=== PATIENT | female | born 1985 | race Caucasian/White ===

== ENCOUNTER 2016-04-24 11:35 | Emergency (ER) | payer SELFPAY ==
--- NOTE | 2016-04-24 16:29 | Emergency Department Report ---
- General Chief Complaint: Upper Respiratory Infection Stated Complaint: COUGH/FEVER/CHILLS/HEADACHE Time Seen by Provider: 04/24/16 15:54 Source: patient Mode of arrival: Ambulatory Limitations: No Limitations - History of Present Illness Initial Comments: Patient presents with chills, cough bodyaches 2 days. She has been using over- the-counter medication with no relief. Denies vomiting, diarrhea. MD Complaint: cough Severity: moderate Severity scale (0 -10): 6 Quality: dull, aching Consistency: constant Improves With: nothing Worsens With: nothing Context: sick contacts Associated Symptoms: fever, myalgias, rhinorrhea, nasal congestion, cough Treatments Prior to Arrival: none - Related Data Previous Rx's Medication Instructions Recorded Last Taken Type Amoxicillin [Amoxicillin TAB] 875 mg PO BID #20 tablet 04/24/16 Unknown Rx Allergies Allergy/AdvReac Type Severity Reaction Status Date / Time No Known Allergies Allergy Verified 04/24/16 12:19 ED Review of Systems ROS: Stated complaint: COUGH/FEVER/CHILLS/HEADACHE Other details as noted in HPI Constitutional: denies: chills, fever ENT: denies: ear pain, throat pain Respiratory: cough. denies: shortness of breath, wheezing Cardiovascular: denies: chest pain, palpitations Gastrointestinal: denies: abdominal pain, nausea, diarrhea Genitourinary: denies: urgency, dysuria, discharge Musculoskeletal: denies: back pain, joint swelling, arthralgia Skin: denies: rash, lesions Neurological: denies: headache, weakness, paresthesias ED Past Medical Hx - Past Medical History Previous Medical History?: No Additional medical history: denies - Surgical History Additional Surgical History: denies - Social History Smoking Status: Current Some Day Smoker Substance Use Type: None - Medications Home Medications: Home Medications Medication Instructions Recorded Confirmed Last Taken Type Amoxicillin [Amoxicillin TAB] 875 mg PO BID #20 tablet 04/24/16 Unknown Rx ED Physical Exam - General Limitations: No Limitations General appearance: alert, in no apparent distress - Head Head exam: Present: atraumatic, normocephalic - Eye Eye exam: Present: normal appearance - ENT ENT exam: Present: mucous membranes moist - Expanded ENT Exam Expanded TM/Canal exam: Erythema: Left TM, Loss of Landmarks: Left TM Mouth exam: Present: normal external inspection Teeth exam: Present: normal inspection Throat exam: Positive: normal inspection - Neck Neck exam: Present: normal inspection, full ROM. Absent: tenderness - Respiratory Respiratory exam: Present: normal lung sounds bilaterally. Absent: respiratory distress - Cardiovascular Cardiovascular Exam: Present: regular rate, normal rhythm. Absent: systolic murmur, diastolic murmur, rubs, gallop - GI/Abdominal GI/Abdominal exam: Present: soft, normal bowel sounds - Extremities Exam Extremities exam: Present: normal inspection, full ROM - Back Exam Back exam: Present: normal inspection, full ROM - Neurological Exam Neurological exam: Present: alert, oriented X3, CN II-XII intact, normal gait - Psychiatric Psychiatric exam: Present: normal affect, normal mood - Skin Skin exam: Present: warm, dry, intact, normal color. Absent: rash ED Course Vital Signs 04/24/16 12:15 Temperature 98.3 F Pulse Rate 96 H Respiratory 16 Rate Blood Pressure 122/91 O2 Sat by Pulse 97 Oximetry ED Medical Decision Making - Medical Decision Making Patient presents with cough, sore throat. Physical exam reveals the left ear otitis media. I will give amoxicillin twice a day 10 days. - Differential Diagnosis otitis media, upper respiratory infection Critical Care Time: No Critical care attestation.: If time is entered above; I have spent that time in minutes in the direct care of this critically ill patient, excluding procedure time. ED Disposition Clinical Impression: Otitis media, left Disposition: DISCHARGED TO HOME OR SELFCARE Is pt being admited?: No Does the pt Need Aspirin: No Condition: Stable Instructions: Otitis Media (ED) Additional Instructions: Rest, increase fluid intake Prescriptions: Amoxicillin [Amoxicillin TAB] 875 mg PO BID #20 tablet Time of Disposition: 16:32
[2016-04-24 16:50] VITALS: BP 110/73
== END 2016-04-24 16:49 | disposition home or self-care (01) ==
LOC: ED 11:35
DX: H66.92 Otitis media, unspecified, left ear (principal); M79.1 Myalgia; R05 Cough; F17.200 Nicotine dependence, unspecified, uncomplicated
CPT/HCPCS: 99282

== ENCOUNTER 2016-09-13 13:10 | Emergency (ER) | payer MEDICAID ==
[2016-09-13 13:24] VITALS: BP 130/88
--- NOTE | 2016-09-13 18:36 | Emergency Department Report ---
Entered by AMRITA THOMAS, acting as scribe for JAYJAY SELLERS NP. ED ENT HPI - General Chief complaint: Sore Throat Stated complaint: SORE THROAT Time Seen by Provider: 09/13/16 15:24 Source: patient Mode of arrival: Ambulatory Limitations: No Limitations - History of Present Illness Initial comments: This is a 31 year old female that is nontoxic, well nourished in appearance, no acute signs of distress with no significant PMHx presents to the ED with a sore throat and left sided facial pain that started this morning. Rates pain 9/10 severity, which she describes as sharp in quality. Aggravated with swallowing and alleviated with nothing. Associated left ear pain but she denies drooling, cough, CP, SOB, abdominal pain, stiff neck, blurry vision, headache, numbness, tingling, chest pain, wheezing, fever, and chills. NDKA. Patient denies any past medical history. MD complaint: sore throat -: This morning Location: throat Severity: severe Severity scale (0 -10): 9 Quality: sharp Consistency: constant Improves with: none Worsens with: swallowing Associated Symptoms: pain with swallowing, sore throat, other (left ear pain). denies: fever, cough, gum swelling, toothache, tinnitus, hearing loss, discharge from ear, rhinorrhea - Related Data Previous Rx's Medication Instructions Recorded Last Taken Type Amoxicillin [Amoxicillin TAB] 875 mg PO BID #20 tablet 04/24/16 Unknown Rx Amoxicillin 500 mg PO BID 10 Days 09/13/16 Unknown Rx Allergies Allergy/AdvReac Type Severity Reaction Status Date / Time No Known Allergies Allergy Verified 04/24/16 12:19 ED Dental HPI - General Chief complaint: Sore Throat Stated complaint: SORE THROAT Source: patient Mode of arrival: Ambulatory Limitations: No Limitations - History of Present Illness MD complaint: sore throat -: This morning Severity: severe Quality: sharp Consistency: constant Improves with: none Worsens with: swallowing Dental Associated Symptons: Yes: Earache, Sore Throat. No: Fever - Related Data Previous Rx's Medication Instructions Recorded Last Taken Type Amoxicillin [Amoxicillin TAB] 875 mg PO BID #20 tablet 04/24/16 Unknown Rx Amoxicillin 500 mg PO BID 10 Days 09/13/16 Unknown Rx Allergies Allergy/AdvReac Type Severity Reaction Status Date / Time No Known Allergies Allergy Verified 04/24/16 12:19 ED Review of Systems Comment: All other systems reviewed and negative Constitutional: denies: chills, diaphoresis, fever Eyes: denies: eye pain, eye discharge, vision change ENT: ear pain (left ear), throat pain Respiratory: denies: cough, orthopnea, shortness of breath, SOB with exertion, SOB at rest, stridor, wheezing Cardiovascular: denies: chest pain, palpitations, dyspnea on exertion, orthopnea Endocrine: no symptoms reported Gastrointestinal: denies: nausea, vomiting Genitourinary: denies: urgency, dysuria, discharge Musculoskeletal: denies: arthralgia, myalgia Skin: denies: rash, lesions Neurological: denies: headache, weakness, paresthesias Psychiatric: denies: anxiety, depression Hematological/Lymphatic: denies: easy bleeding, easy bruising ED Past Medical Hx - Past Medical History Previous Medical History?: No Additional medical history: denies - Surgical History Past Surgical History?: No Additional Surgical History: denies - Social History Smoking Status: Never Smoker Substance Use Type: None - Medications Home Medications: Home Medications Medication Instructions Recorded Confirmed Last Taken Type Amoxicillin [Amoxicillin TAB] 875 mg PO BID #20 tablet 04/24/16 Unknown Rx Amoxicillin 500 mg PO BID 10 Days 09/13/16 Unknown Rx ED Physical Exam - General Limitations: No Limitations General appearance: alert, in no apparent distress - Head Head exam: Present: atraumatic, normocephalic - Eye Eye exam: Present: normal appearance, EOMI Pupils: Present: normal accommodation - ENT ENT exam: Present: mucous membranes moist, normal external ear exam. Absent: TM 's normal bilaterally (slight erythema to left ear canal) - Expanded ENT Exam Expanded Ear exam: Present: normal external inspection TM/Canal exam: Erythema: Left TM Mouth exam: Present: normal external inspection, tongue normal. Absent: drooling, trismus, muffled voice, tongue elevation, laceration Teeth exam: Present: normal inspection Throat exam: Positive: tonsillar erythema, tonsillomegaly (2+), other ( pharyngitis). Negative: tonsillar exudate, R peritonsillar mass, L peritonsillar mass - Neck Neck exam: Present: normal inspection, full ROM. Absent: tenderness, meningismus, lymphadenopathy - Respiratory Respiratory exam: Present: normal lung sounds bilaterally. Absent: respiratory distress, wheezes, rales, rhonchi, stridor, chest wall tenderness, accessory muscle use, decreased breath sounds, prolonged expiratory - Cardiovascular Cardiovascular Exam: Present: regular rate, normal rhythm, normal heart sounds. Absent: bradycardia, tachycardia, irregular rhythm, systolic murmur, diastolic murmur, rubs, gallop - GI/Abdominal GI/Abdominal exam: Present: soft, normal bowel sounds. Absent: distended, tenderness, guarding, rebound, rigid, diminished bowel sounds - Extremities Exam Extremities exam: Present: normal inspection, full ROM, normal capillary refill. Absent: tenderness, pedal edema, joint swelling, calf tenderness - Back Exam Back exam: Present: normal inspection, full ROM. Absent: tenderness, CVA tenderness (R), CVA tenderness (L), muscle spasm, paraspinal tenderness, vertebral tenderness, rash noted - Neurological Exam Neurological exam: Present: alert, oriented X3, CN II-XII intact, normal gait - Psychiatric Psychiatric exam: Present: normal affect, normal mood - Skin Skin exam: Present: warm, dry, intact, normal color. Absent: rash ED Course Vital Signs 09/13/16 13:20 Temperature 98.6 F Pulse Rate 89 Respiratory 18 Rate Blood Pressure 130/88 O2 Sat by Pulse 100 Oximetry ED Medical Decision Making - Medical Decision Making Ed course: This is a 31-year-old female presents with pharyngitis and 2+ tonsillitis. 1-After my physical exam, patient received amoxicillin 500 mg by mouth for 10 days and was instructed to finish full course and advise as prescribed. Patient was also instructed to follow-up with her primary care doctor in 3-5 days or if symptoms worsen such as shortness of breath, chest pain, difficulty breathing, wheezing, difficulty swallowing, drooling and reports emergency room as soon as possible. 2-at time time of discharge, the patient does not seem toxic or ill in appearance. No acute signs of distress noted. Patient agrees to discharge treatment plan of care. No further questions noted by the patient. ED Disposition Clinical Impression: Tonsillitis Pharyngitis Qualifiers: Pharyngitis/tonsillitis etiology: unspecified etiology Qualified Code(s): J02.9 - Acute pharyngitis, unspecified Disposition: TO HOME OR SELFCARE Is pt being admited?: No Does the pt Need Aspirin: No Condition: Stable Instructions: Tonsillitis (ED), Pharyngitis (ED), Amoxicillin (By mouth) Additional Instructions: finish full course of antibiotics as prescribed. Follow-up with your primary care doctor in 3-5 days or if symptoms worsen such as shortness of breath, chest pain, difficulty breathing, wheezing, difficulty swallowing, drooling and reports emergency room as soon as possible. Prescriptions: Amoxicillin 500 mg PO BID 10 Days Referrals: PRIMARY MD ROLF [Primary Care Provider] - 3-5 Days GIGI VILLALTA JR, MD [Staff Physician] - 3-5 Days [facility] [Outside] - 3-5 Days [facility] [Outside] - 3-5 Days Forms: Work/School Release Form(ED) This documentation as recorded by the WILLIAM dorantes JASMINE,accurately reflects the service I personally performed and the decisions made by me,JAYJAY SELLESR, CHAI.
== END 2016-09-13 16:16 | disposition home or self-care (01) ==
LOC: ED 13:10
DX: J03.90 Acute tonsillitis, unspecified (principal); J02.9 Acute pharyngitis, unspecified
CPT/HCPCS: 99282

== ENCOUNTER 2020-09-06 13:44 | Emergency (ER) | payer MEDICAID, OTHER ==
[2020-09-06 13:52] VITALS: BP 111/67
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
== END 2020-09-06 16:00 | disposition home or self-care (01) ==
LOC: ED 13:44
DX: S29.012A Strain of muscle and tendon of back wall of thorax, initial encounter (principal); S46.811A Strain of other muscles, fascia and tendons at shoulder and upper arm level, right arm, initial encounter; M62.838 Other muscle spasm; Z79.899 Other long term (current) drug therapy; V89.2XXA Person injured in unspecified motor-vehicle accident, traffic, initial encounter; Y93.89 Activity, other specified; Y92.488 Other paved roadways as the place of occurrence of the external cause; Y99.8 Other external cause status
CPT/HCPCS: 99281